=== PATIENT | male | born 1965 | race Caucasian/White ===

== ENCOUNTER 2017-03-02 00:33 | Emergency (ER) | payer SELFPAY ==
--- NOTE | 2017-03-02 02:06 | ER ---
ADMIT: 03/02/2017 RM/LOC: ER [facility] MR#: [id number] [address] [facility] [address] [place] [phone] [place] [address] [place] [id number] Emergency Room Report SEX: M AGE: 51 : 1965 DATE: 03/02/2017 HISTORY OF PRESENT ILLNESS: The patient is a 51-year-old male with a past medical history of hypertension and traumatic brain injury, who was brought here by Law Enforcement because of ETOH intoxication and medical clearance for halfway. Per patient and per Law Enforcement, the patient had no trauma, altercation, and he was not involved in any accident. The patient states he drank two pints of vodka and states he did not use any drugs or did not co- ingest any medications with it. The patient denies any headaches, neck pain, chest pain, shortness of breath, palpitation, abdominal pain, or extremity pain. PHYSICAL EXAMINATION: VITAL SIGNS: The patient had normal blood pressure. Blood pressure was in 120s systolic. HEENT: Pupils 3 mm, reactive to light. There are no signs of trauma in head and neck. CHEST: Clear bilateral breath sounds. HEART: Normal heart sounds. ABDOMEN: Soft. Abdomen is also nontender. EXTREMITIES: No signs of trauma in extremities. Normal range of motion in all extremities. NEUROLOGIC: The patient is alert, oriented to person, place, and time, in no obvious pain or distress, admitted to use of alcohol. The rest of the physical exam is noncontributory. DISPOSITION: The patient is stable to be discharged to halfway, to be followed up by halfway physician as needed. Stanley Cristobal MD/ scott JOB #: [id number] CC: Stanley Cristobal MD, Attending Physician
== END 2017-03-02 01:01 ==
LOC: ER 00:33
DX: F10.129 Alcohol abuse with intoxication, unspecified (principal); I10 Essential (primary) hypertension; Z87.820 Personal history of traumatic brain injury; Z79.899 Other long term (current) drug therapy

== ENCOUNTER 2017-08-03 08:14 | Inpatient (IN) | payer SELFPAY ==
[~2017-08-03] VITALS: Ht 190.5 cm; Wt 114.5 kg
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
--- NOTE | ~2017-08-03 | RESCARESUM ---
PATIENT: SISSY BARNEY | | [facility] UNIT #: [id number] | [address] [facility] AGE/SEX: 51 M : [birth year] | [address] | [place] [address] ADMIT/REG DATE: 08/03/17 | ROOM: [facility] LOC: ADTC | ADTC | Summary of Residential Care Primary Counselor[facility] Date of Admission: 08/03/17 Date of Discharge: 08/08/17 Referral Source: self Primary Care Provider Prior to Admission: no PCP Admitting Diagnosis: F10.20 Severe Alcohol Use Disorder; F12.20 Severe Cannabis Use Disorder; Bipolar Disorder; Tobacco Use Disorder; Personality Disorder; Rule out antisocial personality traits; Schizoaffective disorder; other problems include exogenous obesity; benign essential hypertension, and increase risk for blood borne pathogens with negative testing while in assisted and half-way all per history and physical by Dr. Crews. Discharge Diagnosis: same as above Goals Achieved: Client did not achieve any goals due to being asked to leave treatment for aggressive and controlling behaviors. Continued Obstacles to Sobriety/Relapse Issues: Client will need to address his controlling and aggressive behaviors in order to be successful in any type of setting. Family Issues Addressed: none Y Individual Therapy Y Group Therapy N Educational Series on Substance Abuse N Parents/Significant Others Attended Family Program N Acute Medical Problems During the Course of Treatment N Transferred to Hospital During the Course of Treatment Y Accepting of Substance Abuse Problem N Non-accepting of Substance Abuse Problem N Required Psychological or Psychiatric Consultation During the Course of Treatment Completed AA Step # 0 During This Level of Care Significant Incidences During Treatment: Client was placed on contract due to having aggressive behaviors the first day in treatment in evidence of pounding his hand to his fist and stating "He better watch it, nobody messes with me", and "I will squish him like a bug". Client was placed on contract but continued to make statements nd trying to bully his way into situations such as cutting in front of the food line on several occassions and trying to control all conversations whether it be with staff or clients. Client was asked to leave treatment due to breaking his contract. Reason For Discharge: N Completed Residential [place] Goals and Ready For Next Level of Care PATIENT: SISSY BARNEY | | [facility] UNIT #: [id number] | [address] [facility] AGE/SEX: 51 M : [birth year] | [address] | [place] [address] ADMIT/REG DATE: 08/03/17 | ROOM: [facility] LOC: ADTC | ADTC | Summary of Residential Care N Left Tx Against Medical Advice/Treatment Goals Not Complete N Completed Residential Tx Goals But Refusing Continuing Care Recommendations Y Discharged Due to Noncompliance/Treatment Goals not Completed N Discharged Earlier Than Planned Due to: Continuing Care Plan/Recommendations: N Intensive Partial Care Y Sponsor N Partial Care Y AA Meetings/NA Meetings Y Outpatient N Co-dependency Services N Therapeutic Community Y [address] [facility] N Mental Health Therapy N Marriage Counseling N Other Specific Continuing Care Plan: It is recommended that client follow through with residential therapy in a program that accomodates dual diagnosis. PRIMARY COUNSELOR: Beverly Olivo
--- NOTE | 2017-08-03 12:54 | NUR ---
Education note: Client attended speaker Sylvester
--- NOTE | 2017-08-03 14:54 | NUR ---
ADMISSION NOTE Rights/Responsibilities: Copy given and explained to client. Signed and accepted by client. Client oriented to physical lay out of the ADTC unit, given Big Book and admission packet. A Torsten was assigned. Nahum Client is a 51yr old single male. Brought to tx by friend from skilled nursing, where he has been for the past 5 months. Lives in [place], [place]. DOC, Alcohol, last used 03/01/17, 12/01 daily. No allergies, Nurse has med list. No family participation. Initial paperwork given and guidelines gone over. Doctor has been notified.
--- NOTE | 2017-08-03 23:20 | NUR ---
TECH NOTE: Client went for a walk for recreation and attended AA Meeting S/E: Out of skilled nursing and in treatment
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
--- NOTE | 2017-08-04 05:29 | NUR ---
BED NOTE: Client was lying in bed, motionless with their eyes closed at all bedchecks:
--- NOTE | 2017-08-04 13:00 | NUR ---
PEER REVIEWS 1.5 HRS: Clt participated in peer review exercise, and was able to give open and honest feedback to those receiving a review.
--- NOTE | 2017-08-04 13:35 | NUR ---
Tech Note: Client participated in outdoor walk, watched "[employer]" video and is working on Getting Started.
--- NOTE | 2017-08-04 15:57 | NUR ---
Individual Therapy, 1.0 hours, This session focused on orienting client to how treatment works. Client was welcomed and asked to explain the chain of events that led him to residential treatment. Client was advised he will see his counselor twice a week, is required to attend all programming and be on time, discussed family participation and signed release forms, explained visiting hours and no phone privileges for the first week, explained to wave at the [facility] if awake during bed check, and reviewed his initial treatment plan. Client was also put on contract due to threatening behaviors the night before such as making statements that he was going to "smash him like a bug" and hitting his fist against his hand in an aggressive manner.
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
--- NOTE | 2017-08-04 16:06 | NUR ---
Family Note: At this time client does not want family involved in his treatment and did not sign any release forms.
--- NOTE | 2017-08-04 23:54 | NUR ---
Tech Note: Client participated in the reading of the guidelines and watched television/visited with peers. Client also attended the off unit A.A.Meeting SE: Counseling
--- NOTE | 2017-08-05 04:04 | NUR ---
tech note: client was motionless in no distress at all bed checks.
--- NOTE | 2017-08-05 16:04 | NUR ---
Tech Note: Client went to AA meeting and is working on Getting Started.
--- NOTE | 2017-08-05 21:32 | NUR ---
Tech note:Clients worked on [employer] projects and/or watched [employer] for rec, Walked to AA meeting. Late to Client meeting SE:AA
--- NOTE | 2017-08-06 04:42 | NUR ---
Bed Note: Client was in bed, motionless, with no signs of distress at all bed checks
--- NOTE | 2017-08-06 12:01 | NUR ---
Tech Note: Client went to an off site picnic. Client stated that he is working on, " [employer]."
--- NOTE | 2017-08-06 20:25 | NUR ---
Tech note: client attended AA panel, watched tv and movies.
--- NOTE | 2017-08-07 05:39 | NUR ---
Bed note: Client was in bed with eyes closed and no distress at all bed checks
--- NOTE | 2017-08-07 10:16 | NUR ---
Tech note: Client is working on getting started and has a mtg with his counselor.
--- NOTE | 2017-08-07 12:56 | NUR ---
Education note: Client watched one hour video.
--- NOTE | 2017-08-07 13:52 | NUR ---
Morning Group, 1.5 hours, 12/06, Client attended and actively particiapted in group which focused on intorductions and group rules, sharing of homework, and the topic of recovery. CLient shared an assignment he had from the [employer] and Letting Go the Need to Control packet.
--- NOTE | 2017-08-07 23:44 | NUR ---
TECH NOTE: Client went on a walk for recreation and attended in house NA Meeting: S/E: Forgiveness Meeting
--- NOTE | 2017-08-07 23:53 | NUR ---
EDUCATION NOTE: Client attended a one hour education by counselor on "Forgiveness".
--- NOTE | 2017-08-08 03:54 | NUR ---
BED NOTE: Client was lying in bed with eyes closed for all bed checks:
--- NOTE | 2017-08-08 11:22 | NUR ---
Tech Note: Client went for an outdoor walk for morning exercise. Client stated that he is working on Step One.
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
--- NOTE | 2017-08-08 13:59 | NUR ---
Education: Client watched the video, "Recovery Isssues: Part Three" in which Yue Arevalo spoke about steps four and five.
--- NOTE | 2017-08-08 14:56 | NUR ---
Tech Note: Client noticably watched a female staff member walk away down the cohen, until she disappeared into an office.
--- NOTE | 2017-08-08 15:00 | NUR ---
Relapse Prevention, 1.0 hours, Client attended and actively participated in relapse prevention education which focused looking for positive things in recovery by completing and discussing the worksheet My [employer].
--- NOTE | 2017-08-08 16:00 | NUR ---
Counselor Note: This principal technical writer was advised of client being controlling and aggressive to other clients by getting in other clients face and telling them to be quiet, cutting in front of the cafeteria line, and controlling every atmosphere he was in. Client was already on contract for these behavior so he was asked to leave treatment.
--- NOTE | 2017-08-08 17:35 | NUR ---
DISCHARGE NOTE Client was asked to leave treatment due to non-compliance. Client packed his belongings in the presence of his roommate and took all personal property with him. Client left the facility peacefully.
== END 2017-08-08 16:30 | disposition home or self-care (01) | DRG 895 ==
LOC: ADTC 11:36
PROVIDERS: ADMIT Family Medicine
DX: F10.20 Alcohol dependence, uncomplicated (principal); F25.0 Schizoaffective disorder, bipolar type; I10 Essential (primary) hypertension; F12.20 Cannabis dependence, uncomplicated; F17.210 Nicotine dependence, cigarettes, uncomplicated; E66.09 Other obesity due to excess calories; Z91.19 Patient's noncompliance with other medical treatment and regimen; Z65.3 Problems related to other legal circumstances; Z56.0 Unemployment, unspecified; Z63.72 Alcoholism and drug addiction in family